=== PATIENT | male | born 1945 | race Caucasian/White ===

== ENCOUNTER → 2023-08-26 | Outpatient (CLI) | payer MEDICARE, OTHER ==
[2023-08-26 13:32] LABS: BASO # 0.1 K/mm3 (0.0-0.2); BASO % 0.8 % (0.0-2.0); EOS # 0.1 K/mm3 (0.0-0.7); EOS % 1.1 % (0.0-4.0); GRAN # 8.4 K/mm3 (1.4-6.5); GRAN % 74.5 % (42.2-75.2); HEMATOCRIT 41.5 % (42.0-52.0); HEMOGLOBIN 14.1 g/dl (13.5-18.0); LYMPH # 1.7 K/mm3 (1.2-3.4); LYMPH % 15.2 % (20.0-51.0); MEAN CELL VOLUME 81 fl (80.0-100.0); MEAN CORPUSCULAR HEMOGLOBIN 28 pg (27-31); MEAN CORPUSCULAR HGB CONC 34 g/dl (33.0-37.0); MEAN PLATELET VOLUME 10.3 fl (7.4-10.4); MONO # 0.9 K/mm3 (0.1-0.6); PLATELET COUNT 337 K/mm3 (130-400); RED BLOOD COUNT 5.13 M/mm3 (4.20-5.60); REDCELL DISTRIBUTION WIDTH-CV 13.8 % (11.5-14.5)
[2023-08-26 13:42] LABS: ERYTHROCYTE SEDIMENTATION RATE > 100 mm/hr (0-30)
== END ==
LOC: COL.RAD 12:37
PROVIDERS: Nurse Practitioner
DX: M25.561 Pain in right knee (principal)

== ENCOUNTER 2023-09-24 07:29 | Outpatient (CLI) | payer MEDICARE, OTHER ==
[~2023-09-24] VITALS: Ht 167.6 cm; Wt 87.4 kg
[2023-09-24 07:57] VITALS: BP 118/55; PULSE 74; TEMP 98.2
[2023-09-24] MEDS ORDERED: XARELTO15 MG PO (08:04)
[2023-09-24] MEDS ORDERED: PEPCID40 MG PO (08:04)
[2023-09-24] MEDS ORDERED: ENTRESTO 24 MG1 EACH PO (08:04)
[2023-09-24] MEDS ORDERED: CRESTOR40 MG PO (08:05)
[2023-09-24] MEDS ORDERED: TOPROL XL100 MG PO (08:05)
[2023-09-24] MEDS ORDERED: MULTIPLE VITAMI1 CAP PO (08:06)
[2023-09-24] MEDS ORDERED: GLUCOPHAGE500 MG/TAB PO (08:06)
--- NOTE | 2023-09-24 08:54 | NUR ---
pt assisted to lobby following PICC insertion. dressing is clean, dry, and intact upon discharge. pt free from acute concerns and complaints at time of discharge.
== END 2023-09-24 10:39 | disposition home or self-care (01) ==
LOC: EUO 07:29
DX: Z45.2 Encounter for adjustment and management of vascular access device (principal)
CPT/HCPCS: C1751

== ENCOUNTER 2024-02-07 09:00 | Inpatient (IN) | payer MEDICARE, OTHER ==
[2024-02-07] VITALS (14 sets, daily range): BP systolic 104–130; BP diastolic 51–69; PULSE 60–69; TEMP 97.5–98.3
[~2024-02-07] VITALS: Ht 167.6 cm; Wt 88.8 kg
[~2024-02-07 09:00] MED LIST: CRESTOR40 MG PO; Celecoxib 400 MG PREOP X1 PO SCH; ENTRESTO 24 MG1 EACH PO; GLUCOPHAGE500 MG/TAB PO; LR 1,000 ML IV SCH; MULTIPLE VITAMI1 CAP PO; Meclizine 25 MG TAB PO SCH; PEPCID40 MG PO; Pregabalin 150 MG CAP PREOP X1 PO SCH; Scopolamine 1 MG Delivered 3-Day PATCH TD SCH; TOPROL XL100 MG PO; XARELTO15 MG PO
[2024-02-07] MEDS ORDERED: Lidocaine PF 2% (20 MG/ML) 5 ML VIAL ONE (11:01)
[2024-02-07] MEDS ORDERED: Tranexamic Acid 1,000 MG/10 ML VIAL ONE (11:02)
[2024-02-07] MEDS ORDERED: Midazolam 2 MG/2 ML VIAL ONE (11:02)
[2024-02-07] MEDS ORDERED: fentaNYL 50 MCG/ML 2 ML VIAL ONE (11:02)
[2024-02-07] MEDS ORDERED: Naloxone 0.4 MG/ML VIAL IV PRN (12:45)
[2024-02-07] MEDS ORDERED: Morphine 4 MG/ML VIAL IV PRN (12:45)
[2024-02-07] MEDS ORDERED: Promethazine 25 MG TAB PO PRN (12:45)
[2024-02-07] MEDS ORDERED: oxyCODONE 5 MG TAB PO PRN (12:45)
[2024-02-07] MEDS ORDERED: traMADol 50 MG TAB PO PRN (12:45)
[2024-02-07] MEDS ORDERED: Promethazine 50 MG/ML 1 ML VIAL IM PRN (12:45)
[2024-02-07] MEDS ORDERED: Acetaminophen 500 MG TAB PO SCH (13:31)
[2024-02-07] MEDS ORDERED: LR 1,000 ML IV ONE (13:56)
[2024-02-07] MEDS ORDERED: Vancomycin 1 GM VIAL IL ONE ×2 (14:10)
[2024-02-07] MEDS ORDERED: Ondansetron 4 MG/2 ML VIAL IV PRN (14:15)
[2024-02-07] MEDS ORDERED: fentaNYL 50 MCG/ML 1 ML SYRINGE/VIAL [PACU/SDC ONLY] IV PRN (14:15)
[2024-02-07] MEDS ORDERED: Meperidine 50 MG/ML 1 ML VIAL IV PRN (14:15)
[2024-02-07] MEDS ORDERED: HYDROmorphone 1 MG/1 ML SYRINGE [PACU/SDC ONLY] IV PRN (14:15)
[2024-02-07] MEDS ORDERED: hydrALAZINE 20 MG/ML 1 ML VIAL IV PRN (14:15)
--- NOTE | 2024-02-07 15:00 | NUR ---
pt admitted to room from pacu, at bedside. vss. pt a&ox4. med rec complete. dressing to right knee is cdi. fluids infusing into right ac. pt tolerating ice chips. pt denies needs at this time. call light in reach.
[2024-02-07] MEDS ORDERED: Rivaroxaban 15 MG TAB PO SCH (17:00)
[2024-02-07] MEDS ORDERED: ENTRESTO 24 MG1 EACH PO (17:25)
[2024-02-07] MEDS ORDERED: LANOXIN 0.120.125 MG PO (17:49)
--- NOTE | 2024-02-07 19:40 | NUR ---
report received from wilda anand. pt sitting on side of bed finishing dinner. pt denies pain. call light in reach. all needs met at this time.
[2024-02-07] MEDS ORDERED: metFORMIN 500 MG TAB PO SCH (21:00)
[2024-02-07] MEDS ORDERED: Atorvastatin 80 MG TAB PO SCH (21:00)
[2024-02-07] MEDS ORDERED: Rosuvastatin 40 MG **** subs to Atorvastatin 80 MG PO SCH (21:00)
[2024-02-07] MEDS ORDERED: ceFAZolin 1 G in Water For Injection,Sterile 10 ML IV SCH (21:00)
--- NOTE | 2024-02-07 23:18 | NUR ---
shift assessment complete, see documentation. pt tolerated hs meds well. pt continues to deny pain. pt resting in bed. fall precautions in place. call light in reach. all needs met at this time.
[2024-02-08] VITALS (7 sets, daily range): BP systolic 115–144; BP diastolic 63–70; PULSE 67–75; TEMP 98.1–98.7
[2024-02-08 06:00] LABS: HEMATOCRIT 42.7 % (42.0-52.0); HEMOGLOBIN 14.5 g/dl (13.5-18.0)
[2024-02-08] MEDS ORDERED: ROXICODONE 55 MG/TAB PO (07:56)
[2024-02-08] MEDS ORDERED: ULTRAM 50MG TAB50 MG PO (07:56)
[2024-02-08] MEDS ORDERED: TYLENOL 500MG500 MG PO (07:56)
--- NOTE | 2024-02-08 07:56 | NUR ---
pt a&ox4 sitting up in recliner for breakfast. meds given. vss. pt rates pain a 4/10 and denies need for pain medication. bulky dressing changed to aquacell. teds to ble. pt denies needs at this time. call light in reach.
[2024-02-08] MEDS ORDERED: Famotidine 20 MG TAB PO SCH (09:00)
--- NOTE | 2024-02-08 11:01 | NUR ---
Initial visit; Assistant Press Operator Offset and Patient had a very nice visit regarding his life and the lives of his children who were Assistant Press Operator Offset's former neighbors. It was fun for Assistant Press Operator Offset to hear about their children, one of them was born while they lived next door. Assistant Press Operator Offset offered God's blessings to "Ed" and let him know Assistant Press Operator Offset was available to him and wished him a rapid recovery.
--- NOTE | 2024-02-08 13:26 | NUR ---
soap worker met with patient to discuss discharge planning. Patient lives in [place] with his , Pranav Aquino# [phone]. PCP is Dr. Phan, Pharmacy is [facility] in [place], [place]. No issues affording medications. Insurance is Medicare A and B and [employer] Medicare Supplement. No DPOA-HC and not currently interested in completing one during his hospital stay. DME is front wheel walker, crutches and shower chair. Patient reports to be independent with ADLS. Patient is able to transport himself but his is able to drive while he is recovering. Patient has outpatient PT scheduled at [facility]. Patient would like to return home at time of discharge with OP PT. Discharge plan: Home with OP PT
--- NOTE | 2024-02-08 14:39 | NUR ---
pt escorted by wheelchair to personal vehicle.
== END 2024-02-08 14:40 | disposition home or self-care (01) | DRG 561 ==
LOC: SURG 09:00 → INPTSU 09:19 → SURG 09:45
PROVIDERS: Physician Assistant; ADMIT Orthopaedic Surgery
DX: T84.53XA Infection and inflammatory reaction due to internal right knee prosthesis, initial encounter (principal)
CPT/HCPCS: A9284; C1713; C1776; J0690; J2250; J2704; J3010; J3370; J7120